=== PATIENT | female | born 1995 ===

== ENCOUNTER 2019-02-18 07:25 | Inpatient (IN) | payer OTHER ==
[2019-02-18 08:37] VITALS: BMI 36.5
[2019-02-18] MEDS ORDERED: OXYTOCIN 30 UNITS in 0.9% NS 30 UNIT/500 ML INFUS.BAG IVPB ONE (08:50)
[2019-02-18] MEDS ORDERED: BUTORPHANOL TARTRATE 1 MG/ML VIAL IVPB PRN (08:56)
[2019-02-18] MEDS: DEXTROSE 5%-LACTATED RINGERS 1,000 ML IV SCH ×2 (09:00→18:21)
[2019-02-18] MEDS ORDERED: OXYTOCIN 30 UNITS in 0.9% NS 30 UNIT/500 ML INFUS.BAG IVPB SCH (09:00)
[2019-02-18 09:27] LABS: BASO % 0.5 % (0-2.0); HEMOGLOBIN 11.8 GM/dL (10.7-15.3); LYMPH % 26.1 % (8-40); MCH 28.6 pg (25.7-33.7); MCHC 33.6 g/dl (32.0-36.0); MEAN CELL VOLUME 84.9 fl (80-96); MEAN PLT VOLUME 9.4 fl (7.5-11.1); MONO % 11.5 % (3.8-10.2); NEUT % 60.9 % (42.8-82.8); PLATELET COUNT 188 K/MM3 (134-434); RBC 4.12 M/mm3 (3.60-5.2); RDW 14.2 % (11.6-15.6); WHITE BLOOD COUNT 7.2 K/mm3 (4.0-10.0)
[2019-02-18 09:28] LABS: BLOOD UREA NITROGEN 8.7 mg/dL (7-18); CALCIUM 9.2 mg/dL (8.5-10.1); CREATININE 0.4 mg/dL (0.55-1.3); POTASSIUM 3.5 mmol/L (3.5-5.1)
[2019-02-18 09:30] LABS: INR 1.03 (0.83-1.09); PROTHROMBIN TIME (PATIENT) 12.1 SEC (9.7-13.0)
[2019-02-18 09:33] LABS: ACTIVATED PTT 29.8 SECONDS (25.2-36.5)
[2019-02-18] MEDS ORDERED: AMPICILLIN - 2 GM in SODIUM CHLORIDE 100 ML IVPB ONE (09:35)
[2019-02-18] MEDS ORDERED: AMPICILLIN SODIUM 2 GM VIAL ONE (09:36)
[2019-02-18] MEDS ORDERED: AMPICILLIN SODIUM 1 GM VIAL ONE ×2 (13:26→17:16)
[2019-02-18] MEDS: AMPICILLIN - 1 GM in SODIUM CHLORIDE 100 ML IVPB SCH ×2 (13:30→17:30)
[2019-02-18] MEDS ORDERED: PROMETHAZINE HCL 25 MG/1 ML VIAL ONE ×2 (14:52→19:26)
[2019-02-18] MEDS ORDERED: BUTORPHANOL TARTRATE 1 MG/ML VIAL ONE ×3 (14:52→19:25)
[2019-02-18] MEDS ORDERED: PROMETHAZINE HCL 25 MG/1 ML VIAL IVPB ONE ×2 (15:00→19:16)
[2019-02-18] MEDS ORDERED: BUTORPHANOL TARTRATE 1 MG/ML VIAL IVPB ONE (19:16)
--- NOTE | 2019-02-18 19:21 | HP ---
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: Alzheimer's, CVA, Dementia, Migraine, Multiple Sclerosis, Peripheral Neuropathy, Parkinson's, Seizure, Syncope, TIA, Vertigo, Other Cardiovascular: No: AFIB, Aneurysm, Aortic Insufficiency, Aortic Stenosis, CAD, CHF, Deep Vein Thrombosis, HTN, Hyperlipdemia, MA, Mitral Insufficiency, Mitral Stenosis, Murmur, Pulmonary Hypertension, Other Pulmonary: No: Asthma, Bronchitis, Cancer, COPD, O2 Dependent, Pneumonia, Previously Intubated, Pulmonary Embolus, Pulmonary Fibrosis, Sleep Apnea, Other Gastrointestinal: No: Ascites, Cancer, Constipation, Crohn's Disease, Diverticulitis, Diverticulosis, Esophageal Varices, Gastritis, GERD, GI Bleed, Hemorrhoids, Hiatal Hernia, Inflamatory Bowel Disease, Irritable Bowel Disease, Pancreatitis, Peptic Ulcer Disease, Ulcerative Colitis, Other Hepatobiliary: No: Cirrhosis, Cholelithiasis, Cholecystitis, Choledocholithiasis , Hepatitis A, Hepatitis B, Hepatitis C, Other Renal/: No: Renal Failure, Renal Inusuff, BPH, Cancer, Hematuria, Hemodialysis , Neurogenic Bladder, Renal Calculi, UTI, Other Reproductive: No: Ectopic , Endometriosis, Fibroids, PID, Polycystic Ovary Syndrome, Postmenopausal, Other ...: 2 ...Para: 1 ...Term: 1 ...: 0 ...Spon : 0 ...Induced : 0 ...Multiple Gestation: 0 ...EDC by Lorene: 02/11/19 Heme/Onc: No: Anemia, B12 Deficiency, Bleeding Disorder, Cancer, Current Chemotherapy, Current Radiation Therapy, Hemochromatosis, Hypercoaguable State, Myeloproliferative Synd, Sickle Cell Disease, Sickle Cell Trait, Thrombocytopenia, Other Infectious Disease: No: AIDS, C-Diff, Herpes Zoster, HIV, MRSA, STD's, Tuberculosis, VREF, Other Psych: No: Addictions, Anxiety, Bipolar, Depression, Panic, Psychosis, Schizophrenia, Other Musculoskeletal: No: Bursitis, Chronic low back pain, Hemiparesis, Hemiplegia, Osteoarthritis, Paraplegia, Other Rheumatology: No: Fibromyalgia, Gout, Lupus, Rheumatoid Arthritis, Sarcoidosis, Vasculitis, Other ENT: No: Allergic Rhinitis, Sinusitis, Other Endocrine: No: Kevin's Disease, Ortiz's Disease, Diabetes Insipidus, Diabetes Mellitus, Hyperparathyroidism, Hyperthyroidism, Hypothyroidism, Osteopenia, SIADH, Other Dermatology: No: Basal Cell, Cellulitis, Eczema, Melanoma, Psoriasis, Squamous Cell, Other - Past Surgical History Past Surgical History: No: None, AAA Repair, AICD, Amputation, Appendectomy, Arthrosocopy, AV Fistula/Graft, Bariatric Surgery, Breast Biopsy, Bypass, CABG, Carotid Endarterectomy, Cataract Removal, Cholecystectomy, Colectomy, Colonoscopy, Colostomy, Craniotomy, , Cystectomy, Hernia Repair, Hysterectomy, Ileal Conduit, Ileosotomy, Joint Replacement, Kidney Transplant, Laminectomy, Liver Transplant, Mastectomy, Nephrectomy, Oopherectomy, Orchiectomy, Permanent Pacemaker, Prostatectomy, Splenectomy, Stent, Thoracotomy , TURP, Tonsillectomy, Tubal Ligation, Upper Endoscopy, Valve Replacement, Vasectomy, Vein Stripping/Ligation Hx Myomectomy: No Hx Transabdominal Cerclage: No - Advance Directives Advance Directives: Yes: Living Will - Smoking History Smoking history: Never smoked Have you smoked in the past 12 months: No - Alcohol/Substance Use Hx Alcohol Use: No History of Substance Use: reports: None - Social History Usual Living Arrangement: Yes: With Significant Other ADL: Independent History of Recent Travel: No Home Medications - Allergies Allergies/Adverse Reactions: Allergies Allergy/AdvReac Type Severity Reaction Status Date / Time No Known Allergies Allergy Verified 02/18/19 09:46 - Home Medications Home Medications: Ambulatory Orders Vits96/Iron Fum/Folic [ Tablet] 1 tab PO DAILY 02/18/19 Family Disease History - Family Disease History Family History: Denies Review of Systems Unable to obtain ROS, reason: none - Review of Systems Constitutional: reports: No Symptoms Eyes: reports: No Symptoms HENT: reports: No Symptoms Neck: reports: No Symptoms Cardiovascular: reports: No Symptoms Respiratory: reports: No Symptoms Gastrointestinal: reports: No Symptoms Genitourinary: reports: No Symptoms Breasts: reports: No Symptoms Reported Musculoskeletal: reports: No Symptoms Integumentary: reports: No Symptoms Neurological: reports: No Symptoms Endocrine: reports: No Symptoms Hematology/Lymphatic: reports: No Symptoms Psychiatric: reports: No Symptoms Pain Intensity: 1 Physical Exam - Maternity Vital Signs: Vital Signs Temperature 98.1 F 02/18/19 19:00 Pulse Rate 99 H 02/18/19 19:00 Respiratory Rate 18 02/18/19 19:00 Blood Pressure 133/78 02/18/19 19:00 O2 Sat by Pulse Oximetry (%) Constitutional: Yes: Well Nourished, No Distress, Calm Eyes: Yes: WNL, Conjunctiva Clear, EOM Intact HENT: Yes: WNL, Atraumatic, Normocephalic Neck: Yes: WNL, Supple, Trachea Midline Cardiovascular: Yes: WNL, Regular Rate and Rhythm Lungs: Clear to auscultation Breast(s): Yes: WNL - Abdominal Exam/OB Fundal Height: 40 Number of Fetuses: Single Presentation: Vertex Contractions: Yes Regularity: Irregular Intensity: Mild Monitor Mode: External Heart Rate Location: LLQ Accelerations: Uniform Decelerations: None - Vaginal Exam/OB Vaginal Bleediing: No Speculum Exam: No Dilatation (cm): 2 Effacement (%): 60 Amniotic Membrane Status: Intact Presentation: Vertex/Position Station: -2 - Physical Exam Musculoskeletal: Yes: WNL Extremities: Yes: WNL Edema: Yes Edema: LUE: 1+, RUE: 1+, LLE: 1+, RLE: 1+ Integumentary: Yes: WNL Deep Tendon Reflex Grade: Normal +2 ...Motor Strength: WNL Psychiatric: Yes: WNL, Alert, Oriented - Labs Lab Results: CBC, BMP 02/18/19 08:34 02/18/19 08:34 Hemorrhage Risk Assessment - Risk Factors Risk Score: 0 Risk Level: Low Risk Assessment/Plan post date for induction
--- NOTE | 2019-02-18 19:22 | PN ---
Progress Note (short form) - Note Progress Note: 130 pm, 3 cm, 70 %, -1, q 5 m, continue pitocin , nst cat 1,
--- NOTE | 2019-02-18 19:23 | PN ---
Progress Note (short form) - Note Progress Note: 5pm 5 to 6 cm, -1. 80%, q3 m, nst reavctive, s/p stadol , decline epidural
--- NOTE | 2019-02-18 19:24 | PN ---
Progress Note (short form) - Note Progress Note: 7pm, 8cm, -1, 80%, uc q 3 m, nst, reactive , continue pitocin,
[2019-02-18] MEDS ORDERED: OXYTOCIN 20 UNITS in 0.9% NS 20 UNIT/1,000 ML INFUS.BAG IV ONE (20:29)
[2019-02-18] MEDS ORDERED: LIDOCAINE HCL 1% PRESERVATIVE FREE - 30ML VIAL ONE (20:39)
--- NOTE | 2019-02-18 21:07 | PN ---
Progress Note (short form) - Note Progress Note: 840 pm, 10 cm, 0, 100%, uc q 3, pushing soon
[2019-02-18] MEDS ORDERED: oxyCODONE HCL 5 MG TABLET PO PRN (21:09)
[2019-02-18] MEDS ORDERED: WITCH HAZEL 50% (TUCKS) 40 PAD/JAR PAD TP PRN (21:09)
[2019-02-18] MEDS ORDERED: BISACODYL 10 MG SUPP.RECT RC PRN (21:09)
[2019-02-18] MEDS ORDERED: BENZOCAINE 20% 57 GM BOTTLE TP PRN (21:09)
[2019-02-18] MEDS ORDERED: METHYLERGONOVINE MALEATE 0.2 MG/1 ML AMP IM PRN (21:09)
[2019-02-18] MEDS ORDERED: BENZOCAINE 28 GM HEMORRHOIDAL OINTMENT TP PRN (21:09)
--- NOTE | 2019-02-18 21:09 | PN ---
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
[2019-02-18] MEDS ORDERED: MEASLES,MUMPS&RUBELLA VACC/PF 0.5 ML VIAL SQ ONE (21:12)
[2019-02-18] MEDS ORDERED: OXYTOCIN 20 UNITS in 0.9% NS 20 UNIT/1,000 ML INFUS.BAG IV SCH (21:15)
[2019-02-18] MEDS ORDERED: ACETAMINOPHEN 325 MG TABLET (FP) ONE (23:12)
[2019-02-18] MEDS ORDERED: IBUPROFEN 600 MG TABLET (FP) PO ONE (23:13)
[2019-02-19 09:01] LABS: BASO % 0.2 % (0-2.0); EOS % 0.2 % (0-4.5); HEMATOCRIT 30.4 % (32.4-45.2); HEMOGLOBIN 10.1 GM/dL (10.7-15.3); LYMPH % 16.5 % (8-40); MCH 28.3 pg (25.7-33.7); MCHC 33.3 g/dl (32.0-36.0); MEAN CELL VOLUME 84.8 fl (80-96); MEAN PLT VOLUME 9.2 fl (7.5-11.1); MONO % 11.1 % (3.8-10.2); PLATELET COUNT 187 K/MM3 (134-434); RBC 3.59 M/mm3 (3.60-5.2); RDW 14.8 % (11.6-15.6); WHITE BLOOD COUNT 13.5 K/mm3 (4.0-10.0)
[2019-02-19] MEDS ORDERED: DIPHTH,PERTUSS(ACELL),TET 0.5 ML DISP.SYRIN IM ONE (10:00)
[2019-02-19] MEDS: IBUPROFEN 600 MG TABLET (FP) PO PRN (17:52)
[2019-02-19] MEDS: ACETAMINOPHEN 325 MG TABLET (FP) PO PRN (17:53)
[2019-02-19 17:58] VITALS: TEMP 98.5
[2019-02-19 21:19] VITALS: PULSE 96
[2019-02-19] MEDS ORDERED: SENNOSIDES/DOCUSATE COMBO (SENNA PLUS) TABLET (UD) PO PRN (22:00)
[2019-02-20] MEDS: IBUPROFEN 600 MG TABLET (FP) PO PRN ×2 (01:19→11:11)
[2019-02-20] MEDS: ACETAMINOPHEN 325 MG TABLET (FP) PO PRN ×2 (01:20→11:12)
[2019-02-20 08:01] VITALS: BP 129/77
--- NOTE | 2019-02-20 10:40 | PN ---
Post Progress Note Post Day: 2 Type of Delivery: Vital Signs: Vital Signs Temperature 98.5 F 02/20/19 08:00 Pulse Rate 96 H 02/20/19 08:00 Respiratory Rate 20 02/20/19 08:00 Blood Pressure 129/77 02/20/19 08:00 O2 Sat by Pulse Oximetry (%) 100 02/18/19 21:00 Breast Exam: Yes: Soft Uterus: Yes: Fundus Firm, Fundus below umbilicus, Non-tender Abdomen/GI: Yes: Abdomen soft, Passing flatus, Tolerating PO Lochia: Yes: Serosa Lochia, amount: Small Extremities: Yes: Calves non-tender Perineum: Yes: Episiotomy Activity: Ambulating - Labs Labs: CBC WBC 13.5 K/mm3 (4.0-10.0) H 02/19/19 08:20 RBC 3.59 M/mm3 (3.60-5.2) L 02/19/19 08:20 Hgb 10.1 GM/dL (10.7-15.3) L 02/19/19 08:20 Hct 30.4 % (32.4-45.2) L 02/19/19 08:20 MCV 84.8 fl (80-96) 02/19/19 08:20 MCH 28.3 pg (25.7-33.7) 02/19/19 08:20 MCHC 33.3 g/dl (32.0-36.0) 02/19/19 08:20 RDW 14.8 % (11.6-15.6) 02/19/19 08:20 Plt Count 187 K/MM3 (134-434) 02/19/19 08:20 MPV 9.2 fl (7.5-11.1) 02/19/19 08:20 Absolute Neuts (auto) 9.7 K/mm3 (1.5-8.0) H 02/19/19 08:20 Neutrophils % 72.0 % (42.8-82.8) 02/19/19 08:20 Lymphocytes % 16.5 % (8-40) D 02/19/19 08:20 Monocytes % 11.1 % (3.8-10.2) H 02/19/19 08:20 Eosinophils % 0.2 % (0-4.5) 02/19/19 08:20 Basophils % 0.2 % (0-2.0) 02/19/19 08:20 Nucleated RBC % 0 % (0-0) 02/19/19 08:20
--- NOTE | 2019-02-20 10:41 | DS ---
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: Vital Signs Temperature 98.5 F 02/20/19 08:00 Pulse Rate 96 H 02/20/19 08:00 Respiratory Rate 20 02/20/19 08:00 Blood Pressure 129/77 02/20/19 08:00 O2 Sat by Pulse Oximetry (%) 100 02/18/19 21:00 Constitutional: Yes: Well Nourished, No Distress, Calm Eyes: Yes: WNL, Conjunctiva Clear, EOM Intact HENT: Yes: WNL, Atraumatic, Normocephalic Neck: Yes: WNL, Supple, Trachea Midline Cardiovascular: Yes: WNL, Regular Rate and Rhythm Respiratory: Yes: WNL, Regular, CTA Bilaterally Gastrointestinal: Yes: WNL, Normal Bowel Sounds, Soft ...Rectal Exam: Yes: WNL Renal/: Yes: WNL Pelvis: Yes: WNL External Genitalia: Yes: Normal Internal Exam Deferred: No Vaginal Exam: Yes: Normal Cervix: Yes: Normal Uterus: Yes: Normal Adnexa: Normal: Bilateral ....Post : Yes: Uterus firm, Uterus non-tender Breast(s): Yes: WNL Musculoskeletal: Yes: WNL Extremities: Yes: WNL Edema: Yes Edema: LUE: 1+, RUE: 1+, LLE: 1+, RLE: 1+ Integumentary: Yes: WNL Wound/Incision: Yes: Clean/Dry, Well Approximated Neurological: Yes: WNL, Alert, Oriented ...Motor Strength: WNL Psychiatric: Yes: WNL, Alert, Oriented Labs: CBC, BMP 02/19/19 08:20 02/18/19 08:34 Delivery - Delivery Type of Anesthesia: Local Episiotomy/Laceration: Right Mediolateral EBL (cc): 250 Delivery, Single - Stages of Labor Date 1st Stage Initiatied: 02/18/19 Time 1st Stage Initiated: 08:00 Date 2nd Stage Initiated: 02/18/19 Time 2nd Stage Initiated: 20:25 Date of Delivery: 02/18/19 Time of Delivery: 20:36 Time Placenta Delivered: 20:40 Placenta: Yes: Spontaneous - Condition of Infant [employer]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 - 1 Minute Total Score: 9 5 Minutes Total Score: 9 - [place] Feeding Plan Initial Plan: Exclusive throughout hospitalization Benefits of Exclusively reinforced: Yes Discharge Summary Reason For Visit: INDUCTION OF LABOR Condition: Stable - Instructions Diet, Activity, Other Instructions: regular Disposition: HOME - Home Medications Comprehensive Discharge Medication List: Ambulatory Orders Vits96/Iron Fum/Folic [ Tablet] 1 tab PO DAILY 02/18/19
== END 2019-02-20 12:20 | disposition home or self-care (01) | DRG 560 ==
LOC: JLDR 07:25 → J3W 23:20
PROVIDERS: ADMIT Obstetrics & Gynecology; ATTEND Obstetrics & Gynecology
PROC: 10E0XZZ Delivery of Products of Conception, External Approach (ICD-10-PCS; principal; 2019-02-18)
PROC: 0W8NXZZ Division of Female Perineum, External Approach (ICD-10-PCS; 2019-02-18)
DX: O48.0 Post-term pregnancy (principal); Z3A.41 41 weeks gestation of pregnancy; Z37.0 Single live birth
CPT/HCPCS: 36415; 59409; 80048; 85025; 85610; 85730; 86593; 86850; 86900; 86901; 90715